=== PATIENT | male | born 1950 | race Caucasian/White ===

== ENCOUNTER 2019-04-23 20:43 | Emergency (ER) | payer MEDICARE ==
[2019-04-23] MEDS ORDERED: SODIUM CHLORIDE 0.9% 1,000 ML IV STA (21:26)
[2019-04-23] MEDS ORDERED: HYDROmorphone 1 MG/ML 1 ML SYRINGE IVP STA (21:26)
[2019-04-23 21:55] VITALS: PULSE 62; RESP 18
[2019-04-23 21:56] LABS: Appearance,Urine Clear (Clear); Bilirubin,Urine Negative (Negative); Blood,Urine Negative (Negative); Color,Urine Yellow; Glucose,Urine (UA) Negative (Negative); Ketones,Urine Negative (Negative); Leukocyte Esterase,Urine Small (Negative); Mucus,Urine Rare /hpf; Nitrite,Urine Negative (Negative); PH, Urine 6.5 (5.0-8.0); Protein,Urine Negative (Negative); RBC,Urine 1 /hpf (0-5); Specific Gravity,Urine 1.024 (1.001-1.035); Urobilinogen,Urine <2.0 mg/dL (<2.0)
[2019-04-23 21:58] LABS: Basophils # (A) 0.1 k/uL (0-0.2); Basophils % (A) 1 %; Eosinophils # (A) 0.4 k/uL (0-0.7); Eosinophils % (A) 4 %; HGB 11.9 gm/dL (13.0-17.5); Lymphocytes % (A) 21 %; MCH 32.6 pg (25.0-35.0); MCV 95.8 fL (80.0-100.0); Mean Platelet Volume 6.7; Monocytes # (A) 0.5 k/uL (0-1.0); Monocytes % (A) 6 %; Neutrophils # (A) 6.1 k/uL (1.3-7.7); Neutrophils % (A) 65 %; Platelet Count 213 k/uL (150-450); RBC 3.65 m/uL (4.30-5.90); RDW 12.8 % (11.5-15.5); WBC 9.4 k/uL (3.8-10.6)
--- NOTE | 2019-04-23 21:59 | XR ---
EXAMINATION: XR chest 2V DATE AND TIME: 04/23/2019 9:46 PM CLINICAL INDICATION: PHH; Weakness TECHNIQUE: Departmental protocol COMPARISON: None FINDINGS: The lungs are clear. The pleural spaces are negative. The cardiac silhouette is not enlarged. The remainder of the mediastinal silhouette is unremarkable. The skeletal structures and soft tissues are negative for acute findings. IMPRESSION: NO ACUTE PROCESS.
[2019-04-23 22:07] LABS: ALT 34 U/L (21-72); AST 28 U/L (17-59); African American GFR (CKD) >90 (>60 ml/min/1.73 sqM); Albumin 3.4 g/dL (3.5-5.0); Alkaline Phosphatase 58 U/L (38-126); Anion Gap 5 mmol/L; Blood Urea Nitrogen 25 mg/dL (9-20); Carbon Dioxide 29 mmol/L (22-30); Chloride 105 mmol/L (98-107); Creatine Kinase 71 U/L (55-170); Glucose 85 mg/dL (74-99); Magnesium 1.7 mg/dL (1.6-2.3); Phosphorus 3.3 mg/dL (2.5-4.5); Potassium 4.2 mmol/L (3.5-5.1); Sodium 139 mmol/L (137-145); Total Bilirubin 0.3 mg/dL (0.2-1.3); Total Protein 5.9 g/dL (6.3-8.2)
--- NOTE | 2019-04-23 22:07 | ED ---
Back Pain HPI - General Chief Complaint: Urogenital Stated Complaint: L flank pain Time Seen by Provider: 04/23/19 20:58 Source: patient, RN notes reviewed, old records reviewed Limitations: no limitations - History of Present Illness Initial Comments: This is a 68-year-old male the ER for evaluation presents today for evaluation regards to left lower back pain, flank pain. Patient had recent diagnosis of UTI pyelonephritis and was febrile he currently is running no fevers occasional night sweats. Patient states back pain is been persistent in his lower back area. He does take pain medications at home for back pain. Denying current fevers he does complain of dysuria. MD Complaint: back pain -: days(s) Similar Symptoms Previously: Yes Place: home Radiation: none Severity: moderate Severity scale (1-10): 5 Quality: burning, sharp Consistency: constant Improves With: none Worsens With: other (Urination) Associated Symptoms: denies other symptoms - Related Data Home Medications Medication Instructions Recorded Confirmed Amoxicillin 500 mg PO TID 04/23/19 04/23/19 Anastrozole 1 mg PO KOCH 04/23/19 04/23/19 Aspirin [[place] Aspirin EC] 81 mg PO DAILY 04/23/19 04/23/19 Escitalopram [Lexapro] 10 mg PO DAILY 04/23/19 04/23/19 Gabapentin [Neurontin] 300 mg PO HS 04/23/19 04/23/19 Ibuprofen [Motrin] 400 mg PO BID 04/23/19 04/23/19 Levothyroxine Sodium [Synthroid] 150 mcg PO DAILY 04/23/19 04/23/19 Lisinopril [Zestril] 5 mg PO DAILY 04/23/19 04/23/19 Morphine Sulfate ER [Ms Contin] 15 mg PO Q12HR 04/23/19 04/23/19 Multivitamins, Thera [Multivitamin 1 tab PO DAILY 04/23/19 04/23/19 (formulary)] [place]-3 Fatty Acids/Fish Oil [Fish 2 cap PO DAILY 04/23/19 04/23/19 Oil 1,000 mg Softgel] Oxymetazoline 0.05% Nasl [place] 1 spray EA NOSTRIL DAILY PRN 04/23/19 04/23/19 [Afrin 0.05% Nasal [place]] Phenazopyridine HCl 95 mg PO Q6H PRN 04/23/19 04/23/19 Simvastatin 10 mg PO HS 04/23/19 04/23/19 Testosterone Cypionate 100 mg IM KOCH 04/23/19 04/23/19 [Depo-Testosterone] oxyCODONE HCL [oxyCODONE HCL (IR)] 15 mg PO Q6H PRN 04/23/19 04/23/19 Allergies Allergy/AdvReac Type Severity Reaction Status Date / Time bacitracin Allergy Rash/Hives Verified 04/23/19 22:40 [From Neosporin ([id number])] cefazolin [From Ancef] Allergy Rash/Hives Verified 04/23/19 22:40 cephalexin [From Keflex] Allergy SHORTNESS Verified 04/23/19 22:55 OF BREATH neomycin Allergy Rash/Hives Verified 04/23/19 22:40 [From Neosporin ([id number])] polymyxin B Allergy Rash/Hives Verified 04/23/19 22:40 [From Neosporin ([id number])] rofecoxib [From Vioxx] Allergy Rash/Hives, Verified 04/23/19 22:55 SHORTNESS OF BREATH Sulfa (Sulfonamide Allergy Rash/Hives Verified 04/23/19 22:40 Antibiotics) zolpidem [From Ambien] Allergy Confusion Verified 04/23/19 22:40 Review of Systems ROS Statement: Those systems with pertinent positive or pertinent negative responses have been documented in the HPI. ROS Other: All systems not noted in ROS Statement are negative. Past Medical History Past Medical History: Hyperlipidemia, Hypertension, Thyroid Disorder Additional Past Medical History / Comment(s): chronic back pain History of Any Multi-Drug Resistant Organisms: None Reported Past Surgical History: Back Surgery, Joint Replacement Additional Past Surgical History / Comment(s): bilateral hip replacement, bilateral knee replacement, carpal tunnel, cataract surgery. Past Psychological History: Depression Smoking Status: Current every day smoker Past Alcohol Use History: Rare Past Drug Use History: None Reported General Exam Limitations: no limitations General appearance: alert, in no apparent distress Head exam: Present: atraumatic, normocephalic, normal inspection Eye exam: Present: normal appearance, PERRL, EOMI. Absent: scleral icterus, conjunctival injection, periorbital swelling ENT exam: Present: normal exam, mucous membranes moist Neck exam: Present: normal inspection. Absent: tenderness, meningismus, lymphadenopathy Respiratory exam: Present: normal lung sounds bilaterally. Absent: respiratory distress, wheezes, rales, rhonchi, stridor Cardiovascular Exam: Present: regular rate, normal rhythm, normal heart sounds. Absent: systolic murmur, diastolic murmur, rubs, gallop, clicks GI/Abdominal exam: Present: soft, normal bowel sounds. Absent: distended, tenderness, guarding, rebound, rigid Extremities exam: Present: normal inspection, full ROM, normal capillary refill. Absent: tenderness, pedal edema, joint swelling, calf tenderness Back exam: Present: normal inspection Neurological exam: Present: alert, oriented X3, CN II-XII intact Psychiatric exam: Present: normal affect, normal mood Skin exam: Present: warm, dry, intact, normal color. Absent: rash Course Vital Signs 04/23/19 04/23/19 04/23/19 20:47 21:53 22:55 Temperature 97.6 F 97.8 F 97.5 F L Pulse Rate 60 62 62 Respiratory 16 18 18 Rate Blood Pressure 137/94 116/66 126/75 O2 Sat by Pulse 97 98 96 Oximetry - Reevaluation(s) Reevaluation #1: 04/23/19 23:41 Medical record is reviewed 04/23/19 23:41 Did request patient's medical records from [facility] very reviewed and did show urinary tract infection CT was negative Reevaluation #2: 04/23/19 23:41 Patient does have improved pain control Medical Decision Making - Medical Decision Making 68 male the ER for evaluation. Patient presented for recheck with maybe persistent urinary tract infection but he does have back pain with history of chronic back pain, back pain is currently controlled, patient scan is negative here in the ER with normal lab work and a normal urinalysis - Lab Data Result diagrams: 04/23/19 21:36 04/23/19 21:36 Lab Results 04/23/19 04/23/19 04/23/19 Range/Units 21:19 21:36 21:36 WBC 9.4 (3.8-10.6) k/uL RBC 3.65 L (4.30-5.90) m/uL Hgb 11.9 L (13.0-17.5) gm/dL Hct 35.0 L (39.0-53.0) % MCV 95.8 (80.0-100.0) fL MCH 32.6 (25.0-35.0) pg MCHC 34.0 (31.0-37.0) g/dL RDW 12.8 (11.5-15.5) % Plt Count 213 (150-450) k/uL Neutrophils % 65 % Lymphocytes % 21 % Monocytes % 6 % Eosinophils % 4 % Basophils % 1 % Neutrophils # 6.1 (1.3-7.7) k/uL Lymphocytes # 2.0 (1.0-4.8) k/uL Monocytes # 0.5 (0-1.0) k/uL Eosinophils # 0.4 (0-0.7) k/uL Basophils # 0.1 (0-0.2) k/uL Sodium 139 (137-145) mmol/L Potassium 4.2 (3.5-5.1) mmol/L Chloride 105 (98-107) mmol/L Carbon Dioxide 29 (22-30) mmol/L Anion Gap 5 mmol/L BUN 25 H (9-20) mg/dL Creatinine 0.68 (0.66-1.25) mg/dL Est GFR (CKD-EPI)AfAm >90 (>60 ml/min/1.73 sqM) Est GFR (CKD-EPI)NonAf >90 (>60 ml/min/1.73 sqM) Glucose 85 (74-99) mg/dL Calcium 9.0 (8.4-10.2) mg/dL Phosphorus 3.3 (2.5-4.5) mg/dL Magnesium 1.7 (1.6-2.3) mg/dL Total Bilirubin 0.3 (0.2-1.3) mg/dL AST 28 (17-59) U/L ALT 34 (21-72) U/L Alkaline Phosphatase 58 (38-126) U/L Creatine Kinase 71 (55-170) U/L Total Protein 5.9 L (6.3-8.2) g/dL Albumin 3.4 L (3.5-5.0) g/dL Urine Color Yellow Urine Appearance Clear (Clear) Urine pH 6.5 (5.0-8.0) Ur Specific [place] 1.024 (1.001-1.035) Urine Protein Negative (Negative) Urine Glucose (UA) Negative (Negative) Urine Ketones Negative (Negative) Urine Blood Negative (Negative) Urine Nitrite Negative (Negative) Urine Bilirubin Negative (Negative) Urine Urobilinogen <2.0 (<2.0) mg/dL Ur Leukocyte Esterase Small H (Negative) Urine RBC 1 (0-5) /hpf Urine WBC 4 (0-5) /hpf Urine Mucus Rare H (None) /hpf - Radiology Data Radiology results: report reviewed (Ultrasound reveals a bladder negative, CT abdomen pelvis negative for acute disease), image reviewed Disposition Clinical Impression: Back pain Disposition: HOME SELF-CARE Condition: Good Instructions (If sedation given, give patient instructions): Acute Low Back Pain (ED) Is patient prescribed a controlled substance at d/c from ED?: No Referrals: Nonstaff,Physician [Primary Care Provider] - 1-2 days
--- NOTE | 2019-04-23 22:34 | US ---
EXAMINATION TYPE: US renals and bladder DATE OF EXAM: 04/23/2019 COMPARISON: NONE CLINICAL HISTORY: pain. Left flank pain x 2 days. Recent UTI. HTN. EXAM MEASUREMENTS: Right Kidney: 11.5 x 5.2 x 5.2 cm Left Kidney: 10.4 x 5.5 x 5.6 cm Right Kidney: No hydronephrosis or masses seen Left Kidney: No hydronephrosis or masses seen Bladder: Not fully distended. Appears to be anechoic. Bilateral Jets seen: Yes IMPRESSION: Normal kidneys. No renal mass or obstruction. Normal urinary bladder.
[2019-04-23] MEDS ORDERED: KETOROLAC 30 MG/ML 1 ML VIAL IVP STA (22:49)
--- NOTE | 2019-04-23 23:16 | CT ---
EXAMINATION TYPE: CT abdomen pelvis w con DATE OF EXAM: 04/23/2019 COMPARISON: None HISTORY: Left flank pain CT DLP: 1289.70 mGycm Automated exposure control for dose reduction was used. TECHNIQUE: Helical acquisition of images was performed from the lung bases through the pelvis. CONTRAST: Performed without Oral Contrast and with IV Contrast, patient injected with 100 mL of Isovue 300. FINDINGS: Lung bases are clear of infiltrate. There is no pleural effusion. Heart size is normal. Liver shows no focal defect. Spleen stomach pancreas gallbladder appear normal. Bile ducts are not di lated. There is no adrenal mass. Kidneys show satisfactory contrast opacification. There is no hydronephrosi s. Ureters are not dilated. Abdominal aorta is atheromatous. There is no retroperitoneal adenopathy. Bladder distends smoothly. There is metal artifact from bilateral hip prosthesis. There is no evidenc e of a pelvic mass. There is no free fluid in the pelvis. There is no mesenteric edema. There is no ascites or free air. There is no sign of a bowel obstructio n. Appendix appears normal. There is postsurgical changes with multilevel posterior fusion surgery in the lumbar spine. There are spondylotic changes in the lumbar spine. There is no compression fracture. Bony pelvis is intact. There is obscured slightly due to metal artifact. IMPRESSION: NO SIGN OF ACUTE ABDOMEN AND PELVIS. I DO NOT SEE A CAUSE FOR PATIENT'S SYMPTOMS.
[2019-04-24 00:01] VITALS: BP 112/70; TEMP 98.6
== END 2019-04-24 00:01 | disposition home or self-care (01) ==
LOC: EC 20:43
DX: M54.5 Low back pain (principal); R10.9 Unspecified abdominal pain; R30.0 Dysuria; E78.5 Hyperlipidemia, unspecified; I10 Essential (primary) hypertension; E07.9 Disorder of thyroid, unspecified; F32.9 Major depressive disorder, single episode, unspecified; F17.200 Nicotine dependence, unspecified, uncomplicated; Z98.890 Other specified postprocedural states; Z96.653 Presence of artificial knee joint, bilateral; Z96.643 Presence of artificial hip joint, bilateral; Z79.82 Long term (current) use of aspirin; Z79.1 Long term (current) use of non-steroidal anti-inflammatories (NSAID); Z79.890 Hormone replacement therapy; Z87.448 Personal history of other diseases of urinary system; Z79.891 Long term (current) use of opiate analgesic; Z79.899 Other long term (current) drug therapy; Z88.1 Allergy status to other antibiotic agents; Z88.6 Allergy status to analgesic agent; Z88.2 Allergy status to sulfonamides; Z88.8 Allergy status to other drugs, medicaments and biological substances
CPT/HCPCS: 99285; 96374; 96375; 96361; 36415; 80053; 82550; 83735; 84100; 85025; 81001; 71046; 76770; 74177; J1885; J1170; Q9967